=== PATIENT | male | born 1990 | race Caucasian/White ===

== ENCOUNTER 2019-05-18 23:43 | Emergency (ER) | payer OTHER ==
[~2019-05-18] VITALS: Ht 170.2 cm; Wt 93.0 kg
[2019-05-19 00:07] VITALS: BP 137/82
[2019-05-19 04:39] LABS: Hepatitis B Surface Antibody Positive
[2019-05-19 06:08] LABS: Hepatitis B Surface Antigen Negative (Negative)
== END 2019-05-19 04:00 | disposition home or self-care (01) ==
LOC: ER 23:47
DX: S61.230A Puncture wound without foreign body of right index finger without damage to nail, initial encounter (principal); W45.0XXA Nail entering through skin, initial encounter; Y93.89 Activity, other specified; Y99.0 Civilian activity done for income or pay; Y92.89 Other specified places as the place of occurrence of the external cause
CPT/HCPCS: 36415; 86703; 86706; 86803; 87340